=== PATIENT | female | born 1955 | race American Indian/Alaskan Native ===

== ENCOUNTER 2020-07-23 18:17 | Emergency (ER) | payer MEDICARE ==
--- NOTE | 2020-07-23 21:27 | Emergency Department Report ---
ED Fall HPI - General Chief Complaint: Fall Stated Complaint: FACE INJURY/FALL Time Seen by Provider: 07/23/20 20:21 Source: patient Mode of arrival: Ambulatory - History of Present Illness Initial Comments: Patient is a 65-year-old F [place] female with no significant past medical history who is presenting after a fall at a grocery store. Patient states she fell forward after tripping and hit her bottom lip. Did have a small tooth avulsion but most notably is she has a laceration inner lower lip that is approximately 2 6-1/2 cm and a 2 cm laceration just below the vermilion border with some arterial bleeding. Patient was aware that she was going to bleed to . Does have a history of hypertension blood pressure was elevated on arrival. She denies any chest pain shortness of breath but she is quite worried about how much blood she lost. - Related Data Previous Rx's Medication Instructions Recorded Last Taken Type Amoxicillin/Potassium Clav 1 each PO BID #14 tablet 07/23/20 Unknown Rx [Augmentin 875-125 Tablet] Chlorhexidine Mouthwash [Peridex] 15 ml MM BID #1 bottle 07/23/20 Unknown Rx Ibuprofen [Motrin 600 MG tab] 600 mg PO Q8H PRN #20 tablet 07/23/20 Unknown Rx Allergies Allergy/AdvReac Type Severity Reaction Status Date / Time No Known Allergies Allergy Unverified 07/23/20 18:42 ED Review of Systems ROS: Stated complaint: FACE INJURY/FALL Other details as noted in HPI Comment: All other systems reviewed and negative ED Past Medical Hx - Past Medical History Previous Medical History?: Yes Hx Hypertension: Yes Additional medical history: heart problems - Surgical History Past Surgical History?: Yes Additional Surgical History: For Uterine fibroids, T&A - Social History Smoking Status: Never Smoker Substance Use Type: Alcohol - Medications Home Medications: Home Medications Medication Instructions Recorded Confirmed Last Taken Type Amoxicillin/Potassium Clav 1 each PO BID #14 tablet 07/23/20 Unknown Rx [Augmentin 875-125 Tablet] Chlorhexidine Mouthwash [Peridex] 15 ml MM BID #1 bottle 07/23/20 Unknown Rx Ibuprofen [Motrin 600 MG tab] 600 mg PO Q8H PRN #20 tablet 07/23/20 Unknown Rx ED Physical Exam - General Limitations: No Limitations General appearance: alert, in no apparent distress - Head Head exam: Present: atraumatic, normocephalic - Eye Eye exam: Present: normal appearance - ENT ENT exam: Present: mucous membranes moist - Expanded ENT Exam Expanded Mouth exam: Present: laceration (Patient with a 2-1/2 cm laceration in the inner lip which actually appears relatively superficial. The right border does extend approximately half a centimeter deep but the rest is relatively superficial. On the area of the lip just below the vermilion border patient has a 2 cm laceration with active arterial bleeding.) - Neck Neck exam: Present: normal inspection - Respiratory Respiratory exam: Present: normal lung sounds bilaterally. Absent: respiratory distress - Cardiovascular Cardiovascular Exam: Present: regular rate, normal rhythm. Absent: systolic murmur, diastolic murmur, rubs, gallop - GI/Abdominal GI/Abdominal exam: Present: soft, normal bowel sounds - Extremities Exam Extremities exam: Present: normal inspection - Back Exam Back exam: Present: normal inspection - Neurological Exam Neurological exam: Present: alert, oriented X3 - Psychiatric Psychiatric exam: Present: normal affect, normal mood - Skin Skin exam: Present: warm, dry, intact, normal color. Absent: rash ED Course Vital Signs 07/23/20 18:44 Temperature 97.6 F Pulse Rate 95 H Respiratory 18 Rate Blood Pressure 215/101 O2 Sat by Pulse 98 Oximetry - Laceration /Wound Repair Lower Wound Location: mouth (inner lip) Wound Length (cm): 3 Wound's Depth, Shape: superficial Irrigated w/ Saline (ccs): 200 Betadine Prep?: Yes Wound Repaired With: sutures Suture Size/Type: 4:0 Number of Sutures: 2 (vicryl) Head Wound Location: mouth (below félix border) Wound Length (cm): 2 Wound's Depth, Shape: linear Wound Explored: clean Irrigated w/ Saline (ccs): 100 Betadine Prep?: Yes Wound Repaired With: sutures Suture Size/Type: 5:0, nylon Number of Sutures: 4 Sterile Dressing Applied?: Yes - Nerve Block Consent Obtained: verbal consent Local Anesthetic Used: Lidocaine 1% Amount of anesthesia used: 10 Side: left, right Nerve Blocks: other (mental block ) Procedure Successful: Yes Complications: none Patient Tolerated Procedure: well ED Medical Decision Making - Medical Decision Making Wounds were closed. Closed the outer wound for since there was arterial bleed and this appeared to have stopped after sutures were placed. Did not experience any expanding hematoma after suturing. Patient stable for discharge. Patient states she has not taken her blood pressure medicines today. Even after suturing the patient's blood pressure remained elevated and she was given 0.2 of Catapres. Critical Care Time: Yes (30) Critical care attestation.: If time is entered above; I have spent that time in minutes in the direct care of this critically ill patient, excluding procedure time. ED Disposition Clinical Impression: Lip laceration, Arterial bleed, intraoperative, Hypertensive urgency Disposition: DC-01 TO HOME OR SELFCARE Is pt being admited?: No Does the pt Need Aspirin: No Condition: Stable Instructions: Mouth Laceration, [id number], Sutures, Luis, or Adhesive Wound Closure Additional Instructions: Suture removal in 5-7 days on chin laceration Referrals: PEG SUAREZ MD [Referring] - 3-5 Days Time of Disposition: 21:28
[2020-07-23] MEDS ORDERED: cloNIDine 0.2 MG TAB PO ONE (21:43)
[2020-07-23 21:47] VITALS: BP 221/105
== END 2020-07-23 22:08 | disposition home or self-care (01) ==
LOC: ED 18:17
DX: S01.511A Laceration without foreign body of lip, initial encounter (principal); I16.0 Hypertensive urgency; I97.42 Intraoperative hemorrhage and hematoma of a circulatory system organ or structure complicating other procedure; W01.0XXA Fall on same level from slipping, tripping and stumbling without subsequent striking against object, initial encounter; Y93.89 Activity, other specified; Y92.89 Other specified places as the place of occurrence of the external cause; Y99.8 Other external cause status
CPT/HCPCS: 99282